=== PATIENT | male | born 1980 | race Two or more races ===

== ENCOUNTER 2024-09-17 06:50 | Day surgery (SDC) | payer MEDICAID, SELFPAY ==
[2024-09-17] VITALS (10 sets, daily range): BP systolic 100–122; BP diastolic 71–85; PULSE 52–68; RESP 12–17; TEMP 36.4–36.6; O2SAT 91–100; BMI 28.5
[2024-09-17] MEDS: SODIUM CHLORIDE 0.9% 500 ML 500 ML 20 ML IV (07:30)
[2024-09-17] MEDS: DiphenhydrAMINE INJ 50 MG/ML VIAL 25 MG IV (07:32)
[2024-09-17] MEDS: fentaNYL CIT INJ 50 mCg/ML AMP 2ML (ASD USE ONLY) IV (07:33)
[2024-09-17] MEDS: MIDAZOLAM INJ 1 MG/ML VIAL 2 ML (ASD USE ONLY) 2 MG IV (07:34)
== END 2024-09-17 08:35 | disposition home or self-care (01) ==
PROVIDERS: PCP Family Medicine; Referring Provider Surgery; Visit Provider Surgery
PROC: 0DBE8ZX Excision of Large Intestine, Via Natural or Artificial Opening Endoscopic, Diagnostic (ICD-10-PCS; CPT 45380; principal; 2024-09-17 07:30)
DX: D12.3 Benign neoplasm of transverse colon (principal); K64.1 Second degree hemorrhoids
CPT/HCPCS: 45380; A4649; J1200; J2250; J3010; J7040